=== PATIENT | female | born 1945 | race Two or more races ===

== ENCOUNTER 2021-03-22 11:59 | Inpatient (IN) | payer OTHER ==
[~2021-03-22] VITALS: Ht 162.6 cm; Wt 65.8 kg
[2021-03-22] MEDS ORDERED: NEURONTIN300 MG PO (12:32)
[2021-03-22] MEDS ORDERED: ONE-DAILY MULT1 EAC1 PO (12:33)
[2021-03-23] MEDS ORDERED: CELECOXIB200 MG (08:22)
[2021-03-23] MEDS ORDERED: FERROUS SULFAT325 M2 (08:22)
[2021-03-23] MEDS ORDERED: PANTOPRAZOLE SO40 MG (08:22)
[2021-03-23] MEDS ORDERED: METFORMIN HCL500 M4 (08:22)
[2021-03-23] MEDS ORDERED: ATORVASTATIN CA20 MG (08:22)
[2021-03-23] MEDS ORDERED: PROAIR HFA8.5 GM (08:23)
[2021-03-23] MEDS ORDERED: FIBER-LAX625 MG (08:23)
[2021-03-23] MEDS ORDERED: FLORAVANCE CAP1 EACH (08:23)
[2021-03-23] MEDS ORDERED: PHAZYME250 MG (08:23)
[2021-03-23] MEDS ORDERED: BUDESONIDE-FO10.2 G1 (08:23)
[2021-03-27] MEDS ORDERED: PANTOPRAZOLE SO40 MG PO (12:35)
[2021-03-27] MEDS ORDERED: INTEGRA PLUS C1 EACH PO (12:38)
== END 2021-03-27 14:13 | disposition home or self-care (01) | DRG 812 ==
LOC: ER 11:59 → ICU-2 21:24 → ICU 03-25 03:49 → MEDI 03-25 18:19
PROVIDERS: ADMIT Internal Medicine; ATTEND Internal Medicine
PROC: 30233N1 Transfusion of Nonautologous Red Blood Cells into Peripheral Vein, Percutaneous Approach (ICD-10-PCS; principal; 2021-03-22)
PROC: 3E0F7SF Introduction of Other Gas into Respiratory Tract, Via Natural or Artificial Opening (ICD-10-PCS; 2021-03-22)
PROC: 0DJ08ZZ Inspection of Upper Intestinal Tract, Via Natural or Artificial Opening Endoscopic (ICD-10-PCS; 2021-03-24)
DX: D64.9 Anemia, unspecified (principal); K21.9 Gastro-esophageal reflux disease without esophagitis; R53.83 Other fatigue; Z20.822 Contact with and (suspected) exposure to COVID-19

== ENCOUNTER 2022-04-09 15:14 | Emergency (ER) | payer OTHER ==
[~2022-04-09] VITALS: Ht 162.6 cm; Wt 60.3 kg
[~2022-04-09 15:14] MED LIST: ATORVASTATIN CA20 MG; BUDESONIDE-FO10.2 G1; CELECOXIB200 MG; FERROUS SULFAT325 M2; FIBER-LAX625 MG; FLORAVANCE CAP1 EACH; INTEGRA PLUS C1 EACH PO; METFORMIN HCL500 M4; NEURONTIN300 MG PO; ONE-DAILY MULT1 EAC1 PO; PANTOPRAZOLE SO40 MG; PANTOPRAZOLE SO40 MG PO; PHAZYME250 MG; PROAIR HFA8.5 GM
== END 2022-04-09 18:09 | disposition home or self-care (01) ==
LOC: ER 15:14
DX: M79.652 Pain in left thigh (principal)